=== PATIENT | female | born 1950 | race Caucasian/White ===

== ENCOUNTER 2016-10-03 08:34 | Inpatient (IN) | payer OTHER ==
[2016-09-14 10:53] VITALS: Ht 162.6 cm; Wt 88.0 kg
--- NOTE | 2016-09-14 10:57 | HISTORY & PHYSICAL EXAMINATION ---
DATE OF ADMISSION: 10/03/2016 PREOPERATIVE EVALUATION CHIEF COMPLAINT: Left knee pain. HISTORY OF PRESENT ILLNESS: Ramandeep is a pleasant 65-year-old female who presents for preoperative evaluation prior to left knee replacement. She states she is having pain in this knee for several years now, which has gradually worsened, it has now got to the point that is affecting her daily activities including walking, standing, going up and down steps. She has had previous knee arthroscopy in March of 2016, has tried oral anti-inflammatories including ibuprofen and Aleve, and done a course of physical therapy as well as previous cortisone injection and viscosupplementation. Despite conservative measures and continued pain and after discussing further care would like to proceed with a left knee replacement. PAST MEDICAL HISTORY: 1. Hypertension. ALLERGIES: PENICILLIN CAUSES FACIAL SWELLING. CURRENT MEDICATIONS: Verapamil daily. PAST SURGICAL HISTORY: 1. Appendectomy. 2. Tonsillectomy. 3. Left knee arthroscopy in 2015. FAMILY HISTORY: Noncontributory. SOCIAL HISTORY: The patient is , lives with her . Denies any history of smoking or tobacco use. No alcohol consumption. REVIEW OF SYSTEMS: Otherwise negative. Please see HPI for pertinent positives. PHYSICAL EXAMINATION: GENERAL: Neelam 65-year-old female in no acute distress, alert and oriented x3. She is 5 feet 4 inches, weighs 194 pounds. VITAL SIGNS: Blood pressure is 140/68. HEENT: Normocephalic, atraumatic. CARDIAC: Regular rate and rhythm. No murmurs or gallops appreciated. Resting pulse 78 beats per minute. LUNGS: Clear to auscultation without rales or wheeze bilaterally. ABDOMEN: Soft, nontender. Bowel sounds present. EXTREMITIES: Left lower extremity is neurovascularly intact. Calves are soft and nontender. DP pulse +2. Demonstrates good quad tone. Straight leg raise without lag. No erythema or warmth. Has mild effusion. Range of motion is 0/5/120 with positive crepitation. IMAGING: Reviewed of the left knee shows findings consistent with degenerative joint disease including joint space narrowing, subchondral sclerosis noted, and also osteophyte formation. IMPRESSION: 1. Left knee degenerative joint disease. 2. Hypertension. PLAN: Further care discussed with patient. At this point in time, has failed conservative measures and would like to proceed with a left knee replacement. Will place on aspirin 81 mg p.o. b.i.d. for a month postop. Otherwise, have no other questions or concerns. Would like to be discharged home with home health therapy. OZZIE
--- NOTE | 2016-09-14 11:21 | PAT Medication Instructions ---
Service Date September 14, 2016. Current Home Medication List Verapamil (Calan), 120 MG PO HS Medication Instructions For Your Scheduled Surgery - Take the following medications as scheduled the night before surgery: Verapamil (Calan), 120 MG PO HS If you have any questions please call us at [phone] or [phone] ( [place]) or [phone]
--- NOTE | 2016-09-14 11:57 | DIAGNOSTIC IMAGING REPORT ---
CHEST PREADMISSION(PA/LAT) CLINICAL HISTORY: Preoperative chest COMPARISON STUDY: No previous studies for comparison. FINDINGS: The cardiac and mediastinal contours are normal. There is no evidence of focal pulmonary consolidation. There is no evidence of failure. No pleural effusions are visualized.[ IMPRESSION: No active disease in the chest. Electronically signed by: Jj Thomas M.D. 09/14/2016 11:55 AM Dictated Date/Time: 09/14/2016 11:55 AM
[2016-09-14 12:38] LABS: URINE APPEARANCE CLEAR (CLEAR); URINE BILIRUBIN NEG (NEG); URINE COLOR YELLOW; URINE NITRITE NEG (NEG); URINE SPECIFIC GRAVITY 1.018 (1.000-1.030); UROBILINOGEN NEG (NEG)
[2016-09-14 12:45] LABS: INR 0.9 (0.9-1.1); PARTIAL THROMBOPLASTIN RATIO 1.1
[2016-09-14 12:51] LABS: MANUAL MICROSCOPIC REQUIRED? NO; REVIEW REQ? NO
[2016-09-14 12:55] LABS: ESTIMATED AVERAGE GLUCOSE 117 mg/dl; HA1C FLAG Normal (Normal)
[2016-09-14 13:03] LABS: BASO % 0.5 %; BASO ABS # 0.04 K/uL (0-0.2); COMPLETE YES; EOS % 1.5 %; HEMATOCRIT 42.6 % (37-47); IG% 0.5 %; LYMPH % 24.7 %; LYMPH ABS # 1.82 K/uL (1.2-3.4); MEAN CELL VOLUME 91.6 fL (80-100); MEAN CORPUSCULAR HEMOGLOBIN 29.9 pg (25-34); MEAN CORPUSCULAR HGB CONC 32.6 g/dl (32-36); MEAN PLATELET VOLUME 10.3 fL (7.4-10.4); MONO % 6.8 %; PLATELET COUNT 300 K/uL (130-400); RED BLOOD COUNT 4.65 M/uL (4.2-5.4); WHITE BLOOD COUNT 7.37 K/uL (4.8-10.8)
[2016-09-14 16:08] LABS: BUN/CREATININE RATIO 17.5 (10-20); CALCIUM 8.9 mg/dl (8.5-10.1); CREATININE 0.79 mg/dl (0.60-1.20); POTASSIUM 4.7 mmol/L (3.5-5.1)
[~2016-10-03] VITALS: Ht 162.6 cm; Wt 88.0 kg
[2016-10-03] VITALS (7 sets, daily range): BP systolic 120–173; BP diastolic 76–97; PULSE 61–74; TEMP 36.3–36.8; O2SAT 2–99
--- NOTE | 2016-10-03 08:02 | History & Physical Bridge Note ---
H&P Re-Evaluation Bridge Note: I have examined the patient, reviewed the History & Physical and in the interval since the performance of the History & Physical I have noted the following changes of clinical significance: No changes noted
[~2016-10-03 08:34] MED LIST: ACETAMINOPHEN 500 MG TAB PO SCH; BUPIVACAINE 0.25% 30 ML VIAL ONE; BUPIVACAINE 0.5 % 5 MG/1 ML PF 10ML VIAL ONE; CeleBREX 200 MG CAP PO SCH; DEXAMETHASONE 4 MG TAB PO SCH; LACTATED RINGER'S 1000ML 1,000 ML IV SCH; LACTATED RINGER'S 1000ML 500 ML IV ONE; LACTATED RINGER'S 1000ML IV SCH; ROPIVACAINE 5MG/ML 30 ML 150 MG, BUPIVACAINE/EPINEPHR 0.5% MPF 30 ML, KETOROLAC TROMETH... INFIL SCH; VANCOMYCIN INJ 1,300 MG in SODIUM CHLORIDE 0.9% 250ML 250 ML IV SCH; VERA120T15 PO
[2016-10-03] MEDS ORDERED: MIDAZOLAM HCL 1 MG/ML 2ML VIAL ONE (09:11)
[2016-10-03] MEDS ORDERED: FENTANYL CITRATE INJ 50 MCG/1 ML 2 ML VIAL ONE (09:12)
[2016-10-03] MEDS ORDERED: LACTATED RINGER'S 1000ML 1,000 ML IV PRN (10:13)
[2016-10-03] MEDS ORDERED: FENTANYL CITRATE INJ 50 MCG/1 ML 2 ML VIAL IV PRN (10:15)
[2016-10-03] MEDS ORDERED: ONDANSETRON INJ 2 MG/ML 2 ML VIAL IV PRN ×2 (10:15→12:45)
[2016-10-03] MEDS ORDERED: POVIDONE-IODINE OP SOLN 30 ML BTL ONE (10:29)
[2016-10-03] MEDS ORDERED: ORTHO JOINT ANESTHETIC ONE (10:29)
[2016-10-03] MEDS ORDERED: BACITRACIN 50000 UNIT VIAL ONE (10:29)
[2016-10-03] MEDS ORDERED: PROPOFOL IV EMULSION 10 MG/ML 20 ML VIAL IV ONE (12:07)
--- NOTE | 2016-10-03 12:14 | OPERATIVE REPORT ---
DATE OF OPERATION: 10/03/2016 PREOPERATIVE DIAGNOSIS: Severe end-stage tricompartmental degenerative joint disease, left knee. POSTOPERATIVE DIAGNOSIS: Severe end-stage tricompartmental degenerative joint disease, left knee. PROCEDURE: Left total knee arthroplasty utilizing Olmstead \T\ Nephew Journey II patient matched knee size 2 femur, 2 tibia, 11 poly, 29 oval patella. SURGEON: Dr. Anderson. DIRECTOR MEDICAL SURGICAL: GARETT Canales who was necessary for prepping, draping, retraction, wound closure of deep fascia, subcu and skin and was necessary for the case. ESTIMATED BLOOD LOSS: 5 mL. COMPLICATIONS: None. TOURNIQUET TIME: 40 minutes. HISTORY OF PRESENT ILLNESS: The patient presents as a 66-year-old white female with severe endstage DJD about her left knee. The patient presents after failing attempts at conservative management including physical therapy, anti-inflammatories, relative rest, activity modification. After thorough discussion regarding risks, complications, the patient elects to proceed forward with total knee arthroplasty. PROCEDURE: The patient was properly prepped and draped in supine position for total knee arthroplasty after identifying the appropriate surgical site. An anterior midline incision was made through the subcutaneous tissues down to the region of the extensor mechanism. A medial parapatellar incision was subsequently made. Meticulous hemostasis was obtained and performed at all times. The patella having been subluxed lateralward, medial and lateral meniscal remnants were excised. The patellar cut was then initially made and was sized to the appropriate size. After subluxing the tibia forward the appropriate meniscal fragments having been removed the distal femur was then cut first utilizing a Olmstead and Nephew block. The distal femoral cuts and chamfer cuts were all made under direct visualization and the proximal tibial osteotomy cut was also made utilizing Olmstead and Nephew blocks and checked with an extramedullary guide. The appropriate trial components on the femur and tibia were placed. Appropriate trial spacers were used to check flexion and extension gaps. With flexion and extension gaps being equal, the components were then subsequently after thorough irrigation and debridement lavage components were then subsequently cemented in the following order: femur, tibia and patella. Exparel was used for intraoperative anesthesia, the medial parapatellar incision was closed utilizing #1 Vicryl, subQ was closed with 2-0 Vicryl, skin was closed with skin clips. A sterile compression dressing was placed. The patient was taken to recovery room in stable condition. Due to the complex nature of the procedure, the entire surgery was performed with the operational assistance of Jonn Villavicencio PA-C. The assistant women's soccer coach, under direct supervision, was involved in the actual performance of all aspects of the surgical procedure including hemostasis, tissue retraction and incision, instrument management, patient positioning, and wound closure. I attest to the content of the Intraoperative Record and any orders documented therein. Any exceptio ns are noted below.
[2016-10-03] MEDS ORDERED: MAGNESIUM HYDROXIDE SUSP 30 ML UDC PO PRN (12:45)
[2016-10-03] MEDS ORDERED: ALUMINUM/MAGNESIUM/SIMETH (MAALOX MAX) 30 ML UDC PO PRN (12:45)
[2016-10-03] MEDS ORDERED: BISACODYL 10 MG SUPP PR PRN (12:45)
[2016-10-03] MEDS ORDERED: MoRPHine SULFATE 2 MG/ML CARP IV PRN (12:45)
--- NOTE | 2016-10-03 13:16 | DIAGNOSTIC IMAGING REPORT ---
LEFT KNEE 1 OR 2 VIEWS ROUTINE CLINICAL HISTORY: Left knee osteoarthritis. COMPARISON: None FINDINGS: Alignment of the total left knee arthroplasty is anatomic. There is no fracture or unexpected radiopaque foreign body. Drains and skin bill are present. IMPRESSION: Expected findings following total left knee arthroplasty. Electronically signed by: Eddie Doran M.D. 10/03/2016 1:14 PM Dictated Date/Time: 10/03/2016 1:10 PM
--- NOTE | 2016-10-03 13:17 | Anesthesiology Progress Note ---
Anesthesia Post Op Note Date & Time October 03, 2016 at 13:17 Vital Signs Pain Intensity: 0 Vital Signs Past 12 Hours Date Time Temp Pulse Resp B/P Pulse Ox O2 Delivery O2 Flow Rate FiO2 10/03/16 12:40 63 19 126/78 96 Nasal Cannula 2 10/03/16 12:31 36.4 66 20 127/72 97 Nasal Cannula 2 10/03/16 09:09 36.6 72 20 173/97 99 Room Air Notes Mental Status: alert / awake / arousable, participated in evaluation Pt Amnestic to Procedure: No (recall as expected) Nausea / Vomiting: adequately controlled Pain: adequately controlled Airway Patency, RR, SpO2: stable & adequate BP & HR: stable & adequate Hydration State: stable & adequate Neuraxial Anesthesia: was administered, sensory block is resolving Anesthetic Complications: no major complications apparent
[2016-10-03] MEDS ORDERED: MoRPHine SULFATE 4 MG/ML 1 ML CARP\\VIAL IV PRN (14:30)
[2016-10-03] MEDS ORDERED: MoRPHine SULFATE 10 MG/ML CARP/VIAL IV PRN (14:30)
[2016-10-03] MEDS ORDERED: PNEUMOCOCCAL ADMINISTRATION CHARGE ONE (14:45)
[2016-10-03] MEDS ORDERED: PNEUMOCOCCAL POLYSACCHARIDES 25 MCG/0.5 ML VIAL/SYR IM. ONE (14:45)
[2016-10-03] MEDS: D5W AND 1/2NSS + 20MEQ KCL 1,000 ML IV SCH ×2 (14:52→23:39)
[2016-10-03] MEDS: FERROUS GLUCONATE 324 MG TAB PO SCH (17:44)
[2016-10-03] MEDS: KETOROLAC TROMETHAMINE 15 MG/ML VIAL IV. SCH ×2 (17:46→23:40)
[2016-10-03] MEDS: VERAPAMIL HCL 120 MG TABCR PO SCH (20:51)
[2016-10-03] MEDS: SENNA 8.6 MG TAB PO SCH (20:52)
[2016-10-03] MEDS: OXYCODONE HCL 10 MG TABCR (OXYCONTIN) PO SCH (20:52)
[2016-10-03] MEDS: DOCUSATE SODIUM 100 MG CAP PO SCH (20:52)
[2016-10-03] MEDS: ASPIRIN 81 MG ECTAB PO SCH (20:52)
[2016-10-03] MEDS ORDERED: VANCOMYCIN INJ 1,300 MG in SODIUM CHLORIDE 0.9% 250ML 250 ML IV SCH (21:00)
[2016-10-03] MEDS: ACETAMINOPHEN 500 MG TAB PO SCH (22:13)
[2016-10-04] VITALS: BP 112/63; PULSE 64; TEMP 36.5; O2SAT 93
[2016-10-04 03:59] VITALS: BP 143/84; PULSE 57; TEMP 36.4; O2SAT 97
[2016-10-04] MEDS: ACETAMINOPHEN 500 MG TAB PO SCH ×3 (05:52→21:57)
[2016-10-04] MEDS: KETOROLAC TROMETHAMINE 15 MG/ML VIAL IV. SCH ×2 (05:52→14:20)
[2016-10-04 06:31] LABS: HEMATOCRIT 34.3 % (37-47); MEAN CELL VOLUME 90.3 fL (80-100); MEAN CORPUSCULAR HEMOGLOBIN 30.3 pg (25-34); MEAN CORPUSCULAR HGB CONC 33.5 g/dl (32-36); MEAN PLATELET VOLUME 10.2 fL (7.4-10.4); PLATELET COUNT 243 K/uL (130-400); WHITE BLOOD COUNT 13.53 K/uL (4.8-10.8)
[2016-10-04 07:09] LABS: BUN/CREATININE RATIO 17.2 (10-20); CALCIUM 8.2 mg/dl (8.5-10.1); CREATININE 0.71 mg/dl (0.60-1.20); POTASSIUM 4.6 mmol/L (3.5-5.1)
[2016-10-04 07:15] VITALS: BP 111/71; PULSE 59; TEMP 36.4; O2SAT 96
--- NOTE | 2016-10-04 07:38 | Orthopedic Progress Note ---
Orthopedic Progress Note Date of Service Oct 04, 2016. Subjective Post OP Day: 1 (s/p Left TKA) Reports: feeling well, pain controlled w PO medications, Denies: complaints, chest pain, SOB, nausea / vomiting, light headedness, calf pain Objective calves soft nontender, N/V intact, capillary refill less than 2 sec., dressing C /D/I, A&O x3, toes mobile, hemovac drainage (100cc/8 hours) Date Time Temp Pulse Resp B/P (MAP) Pulse Ox O2 Delivery O2 Flow Rate FiO2 10/04/16 03:59 36.4 57 18 143/84 (103) 97 Room Air 10/04/16 00:00 36.5 64 16 112/63 (79) 93 Room Air 10/03/16 23:35 Room Air 10/03/16 20:00 36.4 74 18 129/83 (98) 97 Nasal Cannula 2.0 10/03/16 17:10 36.6 69 18 129/84 (99) 99 Nasal Cannula 2.0 10/03/16 16:10 36.5 61 18 133/85 (101) 97 Nasal Cannula 2.0 10/03/16 15:30 Nasal Cannula 2.0 10/03/16 15:10 36.8 65 18 123/76 (92) 99 Nasal Cannula 2.0 10/03/16 14:40 63 18 134/88 (103) 99 10/03/16 14:10 2 Nasal Cannula 10/03/16 14:10 36.3 61 16 120/79 (93) 95 Nasal Cannula 2.0 10/03/16 14:10 Nasal Cannula 2.0 10/03/16 13:45 57 16 127/92 97 Nasal Cannula 2 10/03/16 13:30 58 17 115/95 97 Nasal Cannula 2 10/03/16 13:20 36.1 60 20 125/79 97 Nasal Cannula 2 10/03/16 13:10 60 15 129/79 97 Nasal Cannula 2 10/03/16 13:00 60 19 130/80 97 Nasal Cannula 2 10/03/16 12:50 60 20 128/74 97 Nasal Cannula 2 10/03/16 12:40 63 19 126/78 96 Nasal Cannula 2 10/03/16 12:31 36.4 66 20 127/72 97 Nasal Cannula 2 10/03/16 09:09 36.6 72 20 173/97 99 Room Air Laboratory Results 24 Hours: Test 10/04/16 06:02 Hematocrit 34.3 % Hemoglobin 11.5 g/dL Assessment & Plan Assessment: POD #1 s/p left TKA -pt/ot -dvt proph with toby/scd/asa -prevena x 7 days -plan for d/c home with HHPT when stable Hypertension Discharge Planning Discharge Planning: home with home health DVT Prophylaxis: TEDs, SCDs, ASA Therapy: Physical Therapy
--- NOTE | 2016-10-04 08:06 | Discharge Instructions ---
Discharge Instructions Date of Service Oct 04, 2016. Admission Reason for Admission: Left Knee Osteoarthritis Discharge Discharge Diagnosis / Problem: Left Total Knee Replacement Discharge Goals Goal(s): Decrease discomfort, Improve function, Increase independence Activity Recommendations Activity Limitations: as noted below Weightbearing Status: Left weightbearing (as tolerated) . Instructions / Follow-Up Instructions / Follow-Up ACTIVITY RECOMMENDATIONS: SELF CARE INSTRUCTIONS AFTER TOTAL KNEE REPLACEMENT A. You may need to continue a physical therapy program after discharge from the hospital. There are several options available to you. Your doctor will assist you in selecting the best one for you. 1. An out-patient facility 2 to 3 times a week for therapy or home therapy. 2. Continue working on all exercises taught to you in the hospital. Your goals should be to increase bending of your knee to 90 degrees and beyond and to fully straighten your knee. B. You may progress at your own pace from walking with a walker or crutches to a cane; then to no assistive devices. C. Make walking a part of your daily routine. Be up as much as comfortable with rest periods throughout the day. Rest with leg elevation is very important. Use the ice wrap frequently for the first 3-4 weeks. D. There are no restrictions on activities. You may ride in a car, shop, participate in oven builder and all social activities. E. Wear the long elastic stockings (RADHA hose) 20 hours a day for 2 weeks after surgery. They can be removed several times a day for laundering and for a bath. F. You may shower, no tub baths until cleared by your doctor. SPECIAL CARE INSTRUCTIONS: VERY IMPORTANT TO READ AND REVIEW A. There are a few signs you need to watch for after you are home. Call [facility] if you notice any of the followin. Increased severe knee pain. Some pain is expected especially when you exercise. 2. Increased swelling in your leg or knee; pain or swelling of the calf muscle in either lower leg. 3. Any fluid drainage from the incision. 4. Shortness of breath or chest pain. B. Please call [facility] at if you have any concerns or questions about your operation or recovery. The doctor or his nurse will return your call promptly. C. You must take antibiotics before dental work, bladder, bowel or other surgery. Your doctor will provide you with a permanent care to carry describing this precaution. IMPORTANT: * REMEMBER TO TAKE ASPIRIN, 81 MG, TWICE DAILY FOR 4 WEEKS UNLESS OTHERWISE DIRECTED. THIS IS YOUR BLOOD THINNER. * HIGH RISK PATIENTS MAY BE PRESCRIBED A STRONGER BLOOD THINNER. THIS WILL BE PROVIDED AT DISCHARGE. * CALL IF INCREASED PAIN, REDNESS, DRAINAGE OR FEVER GREATER THAT 101. * WEAR RADHA HOSE 20 HOURS PER DAY FOR 2 WEEKS. * YOU MAY HAVE A LARGE BAND-AID LIKE DRESSING (SILVERON). THIS WILL REMAIN ON YOUR INCISION FOR 7 DAYS, THEN CAN BE REMOVED. IF INCISION IS LEAKING THROUGH DRESSING, CALL THE OFFICE . Prevena- This is a large suction dressing covering your incision. This will help pull any excess drainage from the wound and allow your incision to heal properly. You may shower with this if you can keep the unit outside of the shower. If any bleeding or leakage is noted please call your doctor's office. This will remain on your incision for 7 days and then should be removed. This can be done yourself or by the home nursing staff if applicable. The entire unit is disposable once removed. Once removed, keep incision clean and dry. If redness or drainage is noted, please call your surgeon. FOLLOW UP VISIT: If appointment is not already scheduled: Please call [facility] to make a follow-up appointment for 2 weeks after your surgery at . Current Hospital Diet Patient's current hospital diet: Regular Diet Discharge Diet Recommended Diet: Regular Diet Procedures Procedures Performed: Left Total Knee Arthroplasty, Cemented Pending Studies Studies pending at discharge: no Laboratory Results Hemoglobin A1c Test 09/14/16 11:30 Range/Units Estimated Average Glucose 117 mg/dl Hemoglobin A1c 5.7 H 4.5-5.6 % Medical Emergencies . Who to Call and When: Medical Emergencies: If at any time you feel your situation is an emergency, please call 911 immediately. . Non-Emergent Contact Non-Emergency issues call your: Primary Care Provider, Surgeon . "Provider Documentation" section prepared by Gamaliel Morel. . VTE Core Measure Inpt VTE Proph given/why not?: Other Anticoagulation (ASA 81mg po bid x 1 month ), T.E.D. Stockings, SCD's [place] Drug Monitoring Program Search Results: patient reviewed within database, no issues identified
[2016-10-04] MEDS: DOCUSATE SODIUM 100 MG CAP PO SCH ×2 (09:01→20:53)
[2016-10-04] MEDS: FERROUS GLUCONATE 324 MG TAB PO SCH ×3 (09:01→18:24)
[2016-10-04] MEDS: ASPIRIN 81 MG ECTAB PO SCH ×2 (09:02→20:53)
[2016-10-04] MEDS: MULTIVITAMIN TAB PO SCH (09:02)
[2016-10-04] MEDS: PANTOprazole SOD 40 MG TAB PO SCH (09:02)
[2016-10-04] MEDS: OXYCODONE HCL IR 5 MG TAB (IMMEDIATE RELEASE) PO PRN ×2 (09:03→17:51)
[2016-10-04] MEDS: OXYCODONE HCL 10 MG TABCR (OXYCONTIN) PO SCH ×2 (09:04→20:51)
--- NOTE | 2016-10-04 09:38 | Anesthesiology Progress Note ---
Anesthesia Post Op Note Date & Time Oct 04, 2016 at 09:37 Vital Signs Pain Intensity: 3.0 Vital Signs Past 12 Hours Date Time Temp Pulse Resp B/P (MAP) Pulse Ox O2 Delivery O2 Flow Rate FiO2 10/04/16 08:00 Room Air 10/04/16 07:15 36.4 59 16 111/71 (84) 96 Room Air 10/04/16 03:59 36.4 57 18 143/84 (103) 97 Room Air 10/04/16 00:00 36.5 64 16 112/63 (79) 93 Room Air 10/03/16 23:35 Room Air Notes Mental Status: alert / awake / arousable, participated in evaluation Pt Amnestic to Procedure: Yes Nausea / Vomiting: adequately controlled Pain: adequately controlled Airway Patency, RR, SpO2: stable & adequate BP & HR: stable & adequate Hydration State: stable & adequate Neuraxial Anesthesia: was administered, sensory block resolved Anesthetic Complications: no major complications apparent
[2016-10-04] MEDS: D5W AND 1/2NSS + 20MEQ KCL 1,000 ML IV SCH (10:58)
[2016-10-04 11:35] VITALS: BP 110/74; PULSE 69; TEMP 36.4; O2SAT 99
[2016-10-04 15:20] VITALS: BP 118/80; PULSE 66; TEMP 36.7; O2SAT 98
[2016-10-04] MEDS: VERAPAMIL HCL 120 MG TABCR PO SCH (20:55)
[2016-10-04] MEDS: SENNA 8.6 MG TAB PO SCH (20:55)
[2016-10-04 23:56] VITALS: BP 129/78; PULSE 78; TEMP 36.6; O2SAT 99
[2016-10-05] MEDS: OXYCODONE HCL IR 5 MG TAB (IMMEDIATE RELEASE) PO PRN ×2 (00:18→07:34)
[2016-10-05 05:44] VITALS: BP 131/80; PULSE 62; TEMP 36.6; O2SAT 93
[2016-10-05] MEDS: ACETAMINOPHEN 500 MG TAB PO SCH (05:47)
[2016-10-05 06:43] VITALS: BP 136/86; PULSE 75; TEMP 36.4; O2SAT 98
--- NOTE | 2016-10-05 07:06 | Orthopedic Progress Note ---
Orthopedic Progress Note Date of Service Oct 05, 2016. Subjective Post OP Day: 2 Reports: feeling well, pain controlled w PO medications, Denies: complaints, chest pain, SOB, nausea / vomiting, light headedness, calf pain Objective calves soft nontender, capillary refill less than 2 sec., dressing C/D/I, A&O x3 , toes mobile Date Time Temp Pulse Resp B/P (MAP) Pulse Ox O2 Delivery O2 Flow Rate FiO2 10/05/16 06:43 36.4 75 16 136/86 (103) 98 Room Air 10/05/16 05:44 36.6 62 16 131/80 (97) 93 Room Air 10/05/16 00:15 Room Air 10/04/16 23:56 36.6 78 14 129/78 (95) 99 Room Air 10/04/16 15:45 Room Air 10/04/16 15:20 36.7 66 18 118/80 (93) 98 Room Air 10/04/16 11:35 36.4 69 16 110/74 (86) 99 Room Air 10/04/16 08:00 Room Air 10/04/16 07:15 36.4 59 16 111/71 (84) 96 Room Air Assessment & Plan Assessment: POD #2 s/p left TKA -pt/ot -dvt proph with toby/scd/asa -prevena x 7 days -plan for d/c home with HHPT when stable, likely after PT today Hypertension Discharge Planning Discharge Planning: home with home health DVT Prophylaxis: TEDs, SCDs, ASA Therapy: Physical Therapy
[2016-10-05] MEDS ORDERED: ONDA8TAB6 PO (07:10)
[2016-10-05] MEDS ORDERED: ASPEC81 PO (07:10)
[2016-10-05] MEDS ORDERED: ACET-1138 PO (07:10)
[2016-10-05] MEDS ORDERED: RXC5 PO (07:10)
[2016-10-05] MEDS ORDERED: CLB200 PO (07:10)
[2016-10-05] MEDS ORDERED: OXYSR10 PO (07:10)
[2016-10-05] MEDS: ASPIRIN 81 MG ECTAB PO SCH (07:32)
[2016-10-05] MEDS: DOCUSATE SODIUM 100 MG CAP PO SCH (07:32)
[2016-10-05] MEDS: FERROUS GLUCONATE 324 MG TAB PO SCH (07:32)
[2016-10-05] MEDS: PANTOprazole SOD 40 MG TAB PO SCH (07:33)
[2016-10-05] MEDS: MULTIVITAMIN TAB PO SCH (07:33)
[2016-10-05] MEDS: OXYCODONE HCL 10 MG TABCR (OXYCONTIN) PO SCH (07:34)
[2016-10-05 10:14] VITALS: BP 136/86; PULSE 75; TEMP 36.4; O2SAT 98
--- NOTE | 2016-10-09 16:07 | DISCHARGE SUMMARY ---
DISCHARGE DIAGNOSIS: Degenerative joint disease, left knee. SECONDARY DIAGNOSIS: Hypertension. CONSULTS: None. COMPLICATIONS: None. PROCEDURES: Left total knee arthroplasty performed by Dr. Anderson on 10/03/2016. BRIEF HISTORY: As dictated in the history and physical. HOSPITAL SUMMARY: The patient was admitted on the above-noted date and had the above-noted surgery performed which she tolerated well. On the first postoperative day, patient was feeling well and pain was controlled and she had no complaints. Calves were soft, nontender, neurovascularly intact and dressings clean, dry and intact. Toes were mobile. Vital signs were stable and she was afebrile. Hemoglobin was 11.5 and she was started on physical therapy protocol and continued on DVT prophylaxis and pain management. By her second postoperative day, she was feeling well and pain was controlled. Calves were soft, nontender. Dressings clean, dry and intact. Toes were mobile. Vital signs were stable. She was progressing with her physical therapy and it was felt that she could be discharged to home. For further review, please see chart. LAB AND X-RAY DATA: As per chart. DISCHARGE INSTRUCTIONS: The patient was discharged to home in satisfactory condition on 10/05/2016. DIET: Regular. ACTIVITY: Weightbearing as tolerated left lower extremity. Follow TK instruction sheets and special care instructions as noted. Follow up with Dr. Anderson in 2 weeks. The patient to call for appointment if one has not been made for you. DISCHARGE MEDICATIONS: Acetaminophen 1000 mg p.o. q. 8 hours, aspirin 81 mg p.o. b.i.d., Celebrex 200 mg p.o. b.i.d., Zofran 8 mg p.o. q. 8 hours p.r.n. nausea, OxyContin 10 mg p.o. q. 12 hours, oxycodone 5-10 mg p.o. q. 4 hours p.r.n. and resume Verapamil 120 mg p.o. at bedtime.
== END 2016-10-05 11:55 | disposition home health service (06) | DRG 470 ==
LOC: ENRESERVDT → ENRESERVTM → C.ACU 08:34 → C.3E 09:30
PROVIDERS: ADMIT Orthopaedic Surgery; ATTEND Orthopaedic Surgery
PROC: 0SRD0J9 Replacement of Left Knee Joint with Synthetic Substitute, Cemented, Open Approach (ICD-10-PCS; principal; 2016-10-03 10:45)
DX: M17.12 Unilateral primary osteoarthritis, left knee (principal); I10 Essential (primary) hypertension; E66.9 Obesity, unspecified; Z68.33 Body mass index [BMI] 33.0-33.9, adult; Z23 Encounter for immunization; Z79.899 Other long term (current) drug therapy